=== PATIENT | female | born 1995 ===

== ENCOUNTER 2022-02-04 15:17 | Outpatient (CLI) | payer OTHER | END 2022-02-04 17:09 | disposition home or self-care (01) | LOC: PRENATAL 15:17 | PROVIDERS: ATTEND Obstetrics & Gynecology Maternal & Fetal Medicine | DX: O35.0XX0 Maternal care for (suspected) central nervous system malformation in fetus, not applicable or unspecified (principal); O35.3XX0 Maternal care for (suspected) damage to fetus from viral disease in mother, not applicable or unspecified; Z3A.21 21 weeks gestation of pregnancy ==

== ENCOUNTER 2022-05-11 08:37 | Outpatient (CLI) | payer OTHER | END 2022-05-11 09:45 | disposition home or self-care (01) | LOC: PRENATAL 08:37 | PROVIDERS: ATTEND Obstetrics & Gynecology Maternal & Fetal Medicine | DX: O26.849 Uterine size-date discrepancy, unspecified trimester (principal); O36.8199 Decreased fetal movements, unspecified trimester, other fetus; Z3A.35 35 weeks gestation of pregnancy ==